=== PATIENT | female | born 1955 | race Caucasian/White ===

== ENCOUNTER 2024-02-22 22:02 | Emergency (ER) | payer MEDICARE ==
[~2024-02-22] VITALS: Ht 167.6 cm; Wt 120.0 kg
[2024-02-22 22:03] VITALS: TEMP 97.7
[2024-02-23 01:21] LABS: PH 5.5 (5.0-8.5); URINE APPEARANCE CLEAR (CLEAR/HAZY); URINE BLOOD NEGATIVE (NEGATIVE); URINE COLOR YELLOW (YELLOW); URINE GLUCOSE NEGATIVE (NEGATIVE); URINE KETONE NEGATIVE (NEGATIVE); URINE NITRATE NEGATIVE (NEGATIVE); URINE PROTEIN(semi-quant) NEGATIVE (NEGATIVE)
[2024-02-23 01:34] LABS: COLLECTION METHOD CLEAN CATCH
[2024-02-23] MEDS ORDERED: Ibuprofen 600 MG TAB PO ONE (02:15)
[2024-02-23 03:00] VITALS: BP 152/78; PULSE 68
== END 2024-02-23 06:14 | disposition home or self-care (01) ==
LOC: COL.ER 22:02
PROVIDERS: Nurse Practitioner Family
DX: S16.1XXA Strain of muscle, fascia and tendon at neck level, initial encounter (principal); M25.552 Pain in left hip; E66.9 Obesity, unspecified; W18.2XXA Fall in (into) shower or empty bathtub, initial encounter